=== PATIENT | male | born 1960 | race Two or more races ===

== ENCOUNTER 2024-01-09 12:20 | Emergency (ER) | payer BC ==
[2024-01-09 12:25] VITALS: BP 153/92; PULSE 72; RESP 18; TEMP 97.5; BMI 26.1
[2024-01-09] MEDS ORDERED: DIPHTH,PERTUSS(ACELL),TET 0.5 ML DISP.SYRIN IM ONE (13:59)
[2024-01-09] MEDS: DIPHTH,PERTUSS(ACELL),TET 0.5 ML DISP.SYRIN IM ONE (16:14)
== END 2024-01-09 17:01 | disposition home or self-care (01) ==
LOC: JERFT 12:20
PROC: 0HQGXZZ Repair Left Hand Skin, External Approach (ICD-10-PCS; principal; 2024-01-09)
PROC: 3E0234Z Introduction of Serum, Toxoid and Vaccine into Muscle, Percutaneous Approach (ICD-10-PCS; 2024-01-09)
DX: S61.213A Laceration without foreign body of left middle finger without damage to nail, initial encounter (principal); S61.215A Laceration without foreign body of left ring finger without damage to nail, initial encounter; S61.201A Unspecified open wound of left index finger without damage to nail, initial encounter; W29.3XXA Contact with powered garden and outdoor hand tools and machinery, initial encounter; Z23 Encounter for immunization
CPT/HCPCS: 73130-TC-LT-FY; 90715; 99283-25